=== PATIENT | female | born 1940 | race Caucasian/White ===

== ENCOUNTER → 2022-06-23 | Day surgery (SDC) | payer OTHER, MEDICARE ==
--- NOTE | 2022-06-23 13:22 | RAD REPORT ---
EXAM DESCRIPTION: US - Breast Core BX w/US Guidance - 06/23/2022 11:35 am CLINICAL HISTORY: N63.13 COMPARISON: Mammogram and bilateral ultrasound studies of 06/18/2022 TECHNIQUE: The patient presents for ultrasound-guided biopsy of a previously detailed lateral right breast mass. Prior mammography and sonography were reviewed. After discussion via telephone with the ordering physician, the decision was made to biopsy the lateral right breast mass and monitor the lef t breast finding. The ultrasound-guided core biopsy procedure, risks and alternatives were discussed with the patient i n detail. After answering all questions, both oral and written consent were obtained. Time out proced ure was performed. The patient had no contraindicated allergy or medication history. Preliminary imaging identified the lateral right breast approximately 15 mm mass. The right breast wa s prepped and draped in the usual sterile fashion. From a(n) inferolateral approach, skin and deeper tissues were anesthetized with 1% lidocaine. Under direct sonographic visualization a 12 gauge vacuum assisted core biopsy needle was advanced and placed at the margin of the mass. There were a total of 3 core biopsies obtained under direct sonographic guidance. The mass did appear to have distortion i n contour supporting transit of the biopsy needle through the small mass. At the conclusion of the procedure a localization clip was placed under sonographic guidance. Post biopsy imaging showed no hematoma or measurable bleeding within the breast. Hemostasis was obtai yoon at the skin site with a sterile bandage placed. Post procedure care and precaution instructions were given to the patient. IMPRESSION: 1. Ultrasound-guided core biopsy was performed of the lateral right breast mass. All obt ained material was given to pathology for histologic assessment. 2. Post biopsy localization clip was placed under ultrasound guidance.
== END ==
LOC: DS 08:00
PROVIDERS: ATTEND Surgery
DX: C50.911 Malignant neoplasm of unspecified site of right female breast (principal); Z17.0 Estrogen receptor positive status [ER+]
CPT/HCPCS: 19083; 88305

== ENCOUNTER 2022-07-14 05:58 | Day surgery (SDC) | payer OTHER, MEDICARE ==
[2022-07-12 12:44] LABS: Absolute Lymphocytes (CBC) 1.7 K/uL (0.7-4.9); Hematocrit 38.7 % (36.0-45.0); MPV 9.8 fL (7.6-11.3); RBC Red Blood Cell Count 3.87 M/uL (3.86-4.86)
[2022-07-12 12:53] LABS: Potassium 4.1 mmol/L (3.5-5.1)
--- NOTE | 2022-07-12 12:54 | RAD REPORT ---
EXAM DESCRIPTION: Yareli Hartmann (2 Views)07/12/2022 11:43 am CLINICAL HISTORY: Preop for breast surgery COMPARISON: None FINDINGS: The lungs appear clear of acute infiltrate. The heart is normal size IMPRESSION: No acute abnormalities displayed
[2022-07-12 13:44] LABS: SARS-CoV-2 Antigen Rapid Res Negative (Negative)
--- NOTE | 2022-07-12 15:06 | EKG ---
Test Date: 2022-07-12 Test Time: 11:34:56 Airline Attendant: LIA MEASUREMENT RESULTS: Intervals: Rate: 68 DE: 170 QRSD: 80 QT: 396 QTc: 421 [place]: P: 75 DE: 170 QRS: 69 T: 72 INTERPRETIVE STATEMENTS: Normal sinus rhythm Possible Left atrial enlargement Cannot rule out Anterior infarct, age undetermined Abnormal ECG Compared to ECG 04/12/1994 10:37:00 Myocardial infarct finding now present Electronically Signed On 07-12-22 15:05:59 CDT by Mark Choi
[2022-07-14] MEDS ORDERED: Ringers Lactate 1,000 ML IV ONE (06:26)
--- NOTE | 2022-07-14 08:00 | RAD REPORT ---
EXAM DESCRIPTION: NM - Lymphoscintigraphy - 07/14/2022 7:52 am CLINICAL HISTORY: PRE OPsentinel node procedure COMPARISON: No comparisons FINDINGS: There were 2 intradermal injections of total approx 250 uCi Lymphoseek in right breast @ 7 :15 Injections were made medial and lateral to the nipple.
--- NOTE | 2022-07-14 08:31 | RAD REPORT ---
EXAM DESCRIPTION: US - Brst,Preop NL Wire Init w/Guid - 07/14/2022 8:20 am CLINICAL HISTORY: Preoperative needle localization, right breast mass COMPARISON: Breast Core BX w/US Guidance dated 06/23/2022 TECHNIQUE: Prior imaging was reviewed. Preliminary imaging again identified an approximately 15 mill imeter IM matter spiculated irregular hypoechoic mass in the 9 o'clock position of the right breast. The needle localization procedure was detail to the patient. Consent has been obtained as part of the broader surgical consent. Skin was prepped and draped in the usual sterile fashion. From an inferior approach, the skin and deeper tissues were anesthetized with 1% lidocaine. A 5 centimeter long localization needle was advanced under sonographic guidance. The tip was placed c entrally within the mass. The hookwire was deployed and was seen to be within the mass. The patient was transferred to the same day surgical area for pending biopsy. IMPRESSION: Ultrasound-guided needle localization of right breast mass as detailed.
[2022-07-14] MEDS ORDERED: METHYLENE BLUE 0.5% 10 ML AMP ONE (09:19)
[2022-07-14] MEDS ORDERED: BUPIVACAINE 0.5% PF 10 ML VIAL ONE (09:19)
[2022-07-14] MEDS ORDERED: LIDOCAINE 1% MPF 5 ML VIAL ONE (09:19)
[2022-07-14] MEDS ORDERED: CIPROFLOXACIN 400mg IV 400 MG/200 ML BAG IV ONE (09:28)
[2022-07-14] MEDS ORDERED: LIDOCAINE 2% MPF 5 ML VIAL ONE (09:58)
[2022-07-14] MEDS ORDERED: propofoL 200 MG/20 ML VIAL IV ONE (09:58)
[2022-07-14] MEDS ORDERED: FENTANYL CITR 100 MCG/2 ML ONE (09:58)
[2022-07-14] MEDS ORDERED: ROCURONIUM 50 MG/5 ML VIAL IV ONE (09:59)
[2022-07-14] MEDS ORDERED: ONDANSETRON 4 MG/2 ML VIAL ONE ×2 (10:03→11:52)
[2022-07-14] MEDS ORDERED: METHYLENE BLUE 0.5% 10 ML AMP IV ONE (10:08)
[2022-07-14] MEDS ORDERED: dexAMETHasone 4 MG/ML VIAL ONE (10:16)
[2022-07-14] MEDS ORDERED: dexAMETHasone 10 MG/ML VIAL ONE (10:17)
[2022-07-14] MEDS ORDERED: Mastisol Adhesive Liq ONE ×2 (11:14)
[2022-07-14] MEDS ORDERED: KETOROLAC 30 MG/ML INJ ONE (11:17)
[2022-07-14] MEDS ORDERED: GLYCOPYRROLATE 0.2 MG/ML SYR ONE (11:18)
[2022-07-14] MEDS ORDERED: NEOSTIGMINE 1 MG/ML -10 ML VIAL ONE (11:18)
--- NOTE | 2022-07-14 11:19 | RAD REPORT ---
EXAM DESCRIPTION: US - Surgical Specimen - 07/14/2022 11:05 am FINDINGS: Post biopsy surgical specimen was submitted for sonographic evaluation. The mass in question is seen within the specimen.
[2022-07-14] MEDS: HYDROMORPHONE HCL 1 MG/ML INJ ONE ×2 (11:40→11:45)
[2022-07-14] MEDS ORDERED: HYDROMORPHONE HCL 1 MG/ML INJ ONE (12:02)
[2022-07-14] MEDS ORDERED: HYDROCODONE/APAP 7.5/325 MG TAB PO ONE (12:57)
[2022-07-14] MEDS ORDERED: HYDROCODONE/APAP 7.5/325 MG TAB ONE (13:08)
[2022-07-14 13:36] VITALS: BP 96/77; TEMP 97.9; O2SAT 100
--- NOTE | 2022-07-14 13:41 | HP ---
Date of Admission: 07/14/2022 Addendum: Mrs. 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 In the same process, we found some lesions on the left side and we will lik e to do a biopsy of and also due to her history of also an MRI. The core biopsy was done previously on the right side. She has infiltrating lobular carcinoma. She was trying to see if we can do the s tommie before surgery, but she does not want to wait. She has been back on the floor. She was called f or the MRI, possible biopsy, but she said they only gave her 15 minutes to get to the point, then she has to rearrange the appointment once again more than once back and forward and she just wanted the right side first knowing that she might have to go and do biopsies and lumpectomies in the future on the left side. She was fully explained the importance of also follow in that area. She wants to con tinue only today. She does not want to work on the left side at this moment. She on the right side. The right side shows lobular carcinoma. We explained to her options of a breast conserv ative treatment versus maxillectomy. We explained to her axillary lymph node. We explained to her a sentinel lymph node and after discussing these pros and cons with the daughter present too, who is [facility], the decision was made to do a lumpectomy, sentinel lymph node biopsy, possible axillar y dissection with benefits, alternatives, and risks including, but not limited to infection, bleeding , damage to adjacent structures, anesthesia complication, lymphedema, NH, and even . She also u nderstands this may not relieve any symptoms. She might need more than one surgical intervention. T he patient was booked in OR per her wishes. RAYO/ROS Voice ID: [id number]
--- NOTE | 2022-08-26 19:26 | OP ---
Date of Procedure: 08/26/2022 Surgeon: Chay Gambino MD The medical record number of [id number] is wrong. The real medical record number is [id number]. I was dictating this operative report again on the 79, although there are 2 medical records for this patie nt, one of them is [id number]. RAYO/ROS Voice ID: [id number] Report ID: [id number]
--- NOTE | 2022-08-27 07:02 | DS ---
Date of Discharge: 07/14/2022 Diagnosis: Right breast infiltrating lobular carcinoma. Procedure: Right breast lumpectomy, needle localized, and right axillary sentinel lymph node biopsy. Disposition: Home. Activity: As tolerated. No heavy lifting. Follow up in my office in 1 week. Call for appointment at [phone]. Keep the area dry for 48 hours, then may shower. Use breast support. Medications: Were previously called out to this patient. RAYO/ROS Voice ID: [id number] Report ID: [id number]
--- NOTE | 2022-08-27 07:23 | OP ---
Date of Procedure: 07/14/2022 Surgeon: Chay Gambino MD Director Of Retail: Enma Polk. Preoperative Diagnosis: Right breast infiltrating lobular carcinoma. Postoperative Diagnosis: Right breast infiltrating lobular carcinoma. Procedures: 1.Right breast lumpectomy, needle localized. 2.Right axillary sentinel lymph node biopsy. Estimated Blood Loss: Less than 10 mL. Specimen: Mass and lymph node. Findings: Lesion within the specimen by Dr. Browning and sentinel lymph node negative per Dr. Osorio. Anesthesia: General plus local. Indications: This is the case of a female who comes to us with a right breast infiltrating ductal lo bular carcinoma. It was fully explained to her the options of a breast conservative treatment versus modified radical mastectomy. After discussing pros and cons with her and her daughter, who is a hea lthcare worker and a good dentist in the area, we decided after this that the right breast lumpectomy is going to be done with an axillary sentinel lymph node, possible axillary dissection. Now, she potts s some findings on the left breast, although we have no evidence of cancer in that, we like to invest igate those, although has not been able to be done yet for some reasons out of my control and she may s not want to wait until the left breast workup is done. She wants to proceed with the right side kn owing that in the future she may have to address the left side. Under those conditions, the benefit, alternatives, and risks of this surgery were fully explained which include, but not limited to infec tion, bleeding, damage to adjacent structures, anesthesia complication, recurrence, chronic numbness in the arm, chronic swelling, lymphedema, DVTs, flap failure, ID, and even . She also understan ds this may not relieve any symptoms. She might need more than one surgical intervention. She under stands that the sentinel lymph node will be done if still we are going to ask the pathologist to give us a short answer for this, although the final report may be, have to be modified to axillary dissec tion. She understands that and she is fully aware of it. The area of concern was marked by me and t he patient in the holding room. The patient went to the radiology suite, where she has a lymphatic m apping. We waited the anesthetic time. We checked for a Neoprobe count to be acceptable in recovery in the holding area before we moved the patient back to Surgery. The patient also have localization of the area by a radiologist this morning and the needle was left intact and watched to make sure th ere is no movement of it. Description Of Procedure: The patient was brought to the operating room, placed in supine position. Anesthesia was done without complication. Right chest and arm was prepped and draped in a sterile f ashion. We proceeded to go with a sentinel lymph node first. We used a Neoprobe gamma instrument. To localize the sentinel lymph node, we made an incision on the axillary hairline, found herself in t he axillary fat pad, used the Neoprobe to localize the sentinel lymph node and the numbers are shown and documented already and these are the numbers that I am going to give. The right axillary basin s hows skin 1549, in vivo 892, ex vivo 857, ex-Vivo 10 seconds count is 731, background 0, and blue nod e. I have to also specify that before the surgery was started, we injected a blue dye over the peria reolar region and the lesion area and massaged the area for about 10 to 15 minutes and this allowed u s to identify the sentinel lymph node blue. Once we had the lymph nodes removed, we sent that to be checked by a pathologist, who stated that she does not see any cancer in those lymph nodes. So at th is moment, we did not perform the axillary dissection. We made sure, we checked for hemostasis, and then approximated the area with a combination of 3-0 chromic. The patient tolerated that procedure w ell. After that, we will go into the right breast lumpectomy. We made an incision in a curvilinear incision right with a needle, then we included the needle and the previous biopsy of that area on the specimen. The wire was followed and then we removed a lump from that region, sent that lump to the radiologist, who confirmed the lesions within the specimen and wire intact. At that moment, then we proceeded to irrigate the area, obtained hemostasis, and then closed the area with a combination of 3 -0 chromic and PDS and Steri-Strips. The patient tolerated the procedure well. Irrigation and hemos tasis to be done before closure. The patient was sent to recovery room in stable condition. Sponge count and instrument counts correct. RAYO/ROS Voice ID: [id number] Report ID: [id number]
== END 2022-07-14 13:30 | disposition home or self-care (01) ==
LOC: OR 05:58
PROVIDERS: ATTEND Surgery
PROC: 0HBT0ZX Excision of Right Breast, Open Approach, Diagnostic (ICD-10-PCS; 2022-07-14)
PROC: 0HBT0ZZ Excision of Right Breast, Open Approach (ICD-10-PCS; principal; 2022-07-14 09:45)
DX: C50.911 Malignant neoplasm of unspecified site of right female breast (principal); Z17.0 Estrogen receptor positive status [ER+]
CPT/HCPCS: 19301; 38500; 93005; 85025; 80048; 36415; 88331; 88332; 88307; 88333; 71046; 76098; 19285; 78195; 87811; J2704; J1100 ×2; J2710; J2001; J3010; J1170 ×2; Q9968 ×2; J7120; J2405 ×2; J0744; A9520